=== PATIENT | female | born 1990 | race Caucasian/White ===

== ENCOUNTER 2016-11-13 13:02 | Emergency (ER) | payer OTHER ==
[~2016-11-13] VITALS: Ht 167.6 cm; Wt 113.2 kg
[~2016-11-13 13:02] MED LIST: ATIVAN0.5 MG PO; Antivert PO; BACTRIM,SEPT1 TABLET PO; Colace PO; Desyrel PO; Dulcolax PO; ENDOCET 5-3251 EACH PO; Habitrol,Nicoderm CQ TD; IBUPROFEN800 MG PO; NAPROSYN500 MG PO; PRENATAL TABLE1 EACH PO; Remove Nicotine Patc TD; Senokot S,Pericolace PO; Theragran PO; Tylenol Extra Streng PO; VALACYCLOVIR500 MG PO; VICODIN 5-5001 EACH PO; Xanax PO; predniSONE PO
[2016-11-13 14:43] LABS: ADD MIUA? NO; BILIRUBIN NEGATIVE; BLOOD NEGATIVE; COLOR STRAW ((YELLOW)); GLUCOSE (STRIP) NEGATIVE; KETONES 5; LEUKOCYTES NEGATIVE; NITRITE NEGATIVE; PROTEIN (STRIP) NEGATIVE; SPECIFIC GRAVITY 1.008 (1.000-1.030); UROBILINOGEN 0.2 MG/DL (0.2-1.0)
[2016-11-13 16:00] LABS: HEMATOCRIT 38.7 % (36.0-46.0); MCH 30.1 PG (29.0-34.0); MCHC 34.4 G/DL (30.0-36.0); MCV 87.6 FL (83-99); MEAN PLAT.VOLUME 10.4 uM^3 (9.5-12.4); PLATELET COUNT 225 K/uL (156-360); RBC DIS.WIDTH-CV 12.6 % (11.8-14.6); RBC DIS.WIDTH-SD 40.2 % (39-53); RED BLOOD COUNT 4.42 M/uL (3.80-5.20); WHITE BLOOD COUNT 10.5 K/uL (4.1-10.2)
[2016-11-13 16:21] LABS: CHLORIDE 107 mEq/L (99-109); POTASSIUM 4.2 mEq/L (3.7-5.4); SODIUM 138 mEq/L (136-147)
[2016-11-13 16:22] LABS: GLUCOSE 78 mg/dL (70-99)
[2016-11-13 16:24] LABS: ANION GAP 9 MEQ/L (2-14)
[2016-11-13 16:26] LABS: GFR ESTIMATE (CALCULATED) > 59 mL/min/
[2016-11-13 16:27] LABS: UREA NITROGEN (BUN) 8 mg/dL (9-23)
[2016-11-13 17:00] LABS: QUANTITATIVE HCG 25076.2 MIU/ML
[2016-11-13 17:42] VITALS: BP 124/60
== END 2016-11-13 17:45 | disposition home or self-care (01) ==
LOC: EXP 13:02 → EME 13:02 → EXP 17:45
PROVIDERS: Physician Assistant
DX: O26.892 Other specified pregnancy related conditions, second trimester (principal); E86.0 Dehydration; Z3A.17 17 weeks gestation of pregnancy; F17.200 Nicotine dependence, unspecified, uncomplicated
CPT/HCPCS: 80048; 81003; 84702; 85027; 99281; 99284; J7030

== ENCOUNTER 2017-03-11 16:16 | Inpatient (IN) | payer OTHER ==
[~2017-03-11] VITALS: Ht 167.6 cm; Wt 115.0 kg
[2017-03-11 16:47] VITALS: BP 133/76
[2017-03-11] MEDS ORDERED: MAKENA250 MG/1 M IM (16:52)
[2017-03-11 18:11] VITALS: BP 141/71
[2017-03-11 20:48] VITALS: BP 147/68
[2017-03-12] VITALS (9 sets, daily range): BP systolic 106–146; BP diastolic 56–81
[2017-03-12 21:52] LABS: ADD MIUA? YES; BILIRUBIN NEGATIVE; BLOOD LARGE; COLOR YELLOW ((YELLOW)); GLUCOSE (STRIP) NEGATIVE; KETONES NEGATIVE; LEUKOCYTES LARGE; NITRITE NEGATIVE; PROTEIN (STRIP) NEGATIVE; SPECIFIC GRAVITY 1.009 (1.000-1.030); UROBILINOGEN 0.2 MG/DL (0.2-1.0)
[2017-03-12 21:57] LABS: EOSINOPHIL (%) 0.1 % (0-5); HEMATOCRIT 36.1 % (36.0-46.0); IMMATURE GRANULOCYTE (%) 0.8 % (0.0-0.7); IMMATURE GRANULOCYTE COUNT 0.1 K/uL; INSTRUMENT ABS NEUTROPHIL CT 9.9 K/uL; LYMPHOCYTE COUNT 1.2 K/uL (1.0-2.8); MCH 29.6 PG (29.0-34.0); MCHC 33.8 G/DL (30.0-36.0); MCV 87.6 FL (83-99); MEAN PLAT.VOLUME 10.8 uM^3 (9.5-12.4); MONOCYTE (%) 2.3 % (3-12); MONOCYTE COUNT 0.3 K/uL (0-0.8); NEUTROPHIL (%) 86.3 % (45-76); NEUTROPHIL COUNT 9.9 K/uL (1.8-6.4); PLATELET COUNT 236 K/uL (156-360); RBC DIS.WIDTH-CV 12.4 % (11.8-14.6); RBC DIS.WIDTH-SD 39.5 % (39-53); RED BLOOD COUNT 4.12 M/uL (3.80-5.20); WHITE BLOOD COUNT 11.4 K/uL (4.1-10.2)
[2017-03-12 22:19] LABS: EPITHELIAL CELLS 2+ /HPF; WHITE BLOOD CELLS 30-40 /HPF (0-5); WHITE BLOOD CELLS CLUMP FEW /HPF (0-5)
[2017-03-12 22:20] LABS: AMORPHOUS URATES CRYSTALS RARE; BACTERIA 3+ /HPF; MUCUS TRACE /LPF
[2017-03-13] VITALS (10 sets, daily range): BP systolic 122–155; BP diastolic 56–75
[2017-03-13 07:27] LABS: EOSINOPHIL (%) 0.1 % (0-5); HEMATOCRIT 36.6 % (36.0-46.0); IMMATURE GRANULOCYTE (%) 0.6 % (0.0-0.7); IMMATURE GRANULOCYTE COUNT 0.1 K/uL; LYMPHOCYTE COUNT 1.6 K/uL (1.0-2.8); MCH 30.6 PG (29.0-34.0); MCHC 33.9 G/DL (30.0-36.0); MCV 90.4 FL (83-99); MEAN PLAT.VOLUME 11.2 uM^3 (9.5-12.4); MONOCYTE (%) 3.6 % (3-12); MONOCYTE COUNT 0.4 K/uL (0-0.8); NEUTROPHIL (%) 81.2 % (45-76); PLATELET COUNT 212 K/uL (156-360); RBC DIS.WIDTH-CV 12.6 % (11.8-14.6); RBC DIS.WIDTH-SD 41.5 % (39-53); RED BLOOD COUNT 4.05 M/uL (3.80-5.20); WHITE BLOOD COUNT 11.1 K/uL (4.1-10.2)
[2017-03-13] MEDS ORDERED: MOTRIN800 MG PO (09:59)
[2017-03-13] MEDS ORDERED: PERCOCET 5/31 TABLET PO (09:59)
[2017-03-14 00:25] VITALS: BP 114/53
[2017-03-14 03:30] VITALS: BP 121/55
[2017-03-14 07:06] LABS: EOSINOPHIL (%) 0.3 % (0-5); HEMATOCRIT 28.9 % (36.0-46.0); IMMATURE GRANULOCYTE (%) 0.6 % (0.0-0.7); IMMATURE GRANULOCYTE COUNT 0.1 K/uL; INSTRUMENT ABS NEUTROPHIL CT 7.7 K/uL; LYMPHOCYTE COUNT 1.7 K/uL (1.0-2.8); MCH 30.2 PG (29.0-34.0); MCHC 33.6 G/DL (30.0-36.0); MEAN PLAT.VOLUME 11.1 uM^3 (9.5-12.4); MONOCYTE (%) 9.4 % (3-12); NEUTROPHIL (%) 73.1 % (45-76); NEUTROPHIL COUNT 7.7 K/uL (1.8-6.4); PLATELET COUNT 157 K/uL (156-360); RBC DIS.WIDTH-CV 12.7 % (11.8-14.6); RBC DIS.WIDTH-SD 41.2 % (39-53); WHITE BLOOD COUNT 10.5 K/uL (4.1-10.2)
[2017-03-14 07:07] LABS: RED BLOOD COUNT 3.21 M/uL (3.80-5.20)
[2017-03-14 07:40] VITALS: BP 122/59
[2017-03-14 11:36] VITALS: BP 118/59
[2017-03-14 17:11] VITALS: BP 116/70
[2017-03-15 02:35] VITALS: BP 127/63
[2017-03-15 07:33] VITALS: BP 120/57
[2017-03-15 10:45] VITALS: BP 119/73
[2017-03-15 15:59] VITALS: BP 134/81
[2017-03-15 23:23] VITALS: BP 129/59
[2017-03-16 06:39] VITALS: BP 130/71
[2017-03-16 16:44] VITALS: BP 135/79
[2017-03-16 23:04] VITALS: BP 117/57
[2017-03-17 08:20] VITALS: BP 142/88
== END 2017-03-17 10:49 | disposition home or self-care (01) | DRG 765 ==
LOC: LDRP-OP 16:16 → 2WEST 16:17 → LDRP-OP 05-20 10:28
PROVIDERS: Obstetrics & Gynecology
PROC: 10D00Z1 Extraction of Products of Conception, Low, Open Approach (ICD-10-PCS; principal; 2017-03-13)
DX: O34.211 Maternal care for low transverse scar from previous cesarean delivery (principal); O60.14X1 Preterm labor third trimester with preterm delivery third trimester, fetus 1; D62 Acute posthemorrhagic anemia; O99.354 Diseases of the nervous system complicating childbirth; O98.52 Other viral diseases complicating childbirth; Z68.41 Body mass index [BMI] 40.0-44.9, adult; E66.9 Obesity, unspecified; O99.89 Other specified diseases and conditions complicating pregnancy, childbirth and the puerperium; N73.6 Female pelvic peritoneal adhesions (postinfective); O32.1XX1 Maternal care for breech presentation, fetus 1; Z3A.34 34 weeks gestation of pregnancy; O34.03 Maternal care for unspecified congenital malformation of uterus, third trimester; Q51.3 Bicornate uterus; O36.5931 Maternal care for other known or suspected poor fetal growth, third trimester, fetus 1; Z87.891 Personal history of nicotine dependence; O62.2 Other uterine inertia; O12.04 Gestational edema, complicating childbirth; N85.8 Other specified noninflammatory disorders of uterus; G35 Multiple sclerosis; O99.52 Diseases of the respiratory system complicating childbirth; J45.909 Unspecified asthma, uncomplicated; B00.1 Herpesviral vesicular dermatitis; O99.02 Anemia complicating childbirth; O99.214 Obesity complicating childbirth; Z37.0 Single live birth
CPT/HCPCS: 81003; 85025; 86850; 86900; 86901; 87081; 87086; 88307; G0378; J0702; J1580; J1885; J2210; J2274; J2405; J2550; J2765; J7050; J7120

== ENCOUNTER 2017-03-21 13:12 | Emergency (ER) | payer OTHER ==
[~2017-03-21] VITALS: Ht 167.6 cm; Wt 118.1 kg
[~2017-03-21 13:12] MED LIST changes: +MAKENA250 MG/1 M IM; +MOTRIN800 MG PO; +PERCOCET 5/31 TABLET PO
[2017-03-21 16:40] VITALS: BP 135/106
== END 2017-03-21 16:40 | disposition home or self-care (01) ==
LOC: EME 13:12
DX: O9A.23 Injury, poisoning and certain other consequences of external causes complicating the puerperium (principal); T80.1XXA Vascular complications following infusion, transfusion and therapeutic injection, initial encounter; I80.8 Phlebitis and thrombophlebitis of other sites; M25.531 Pain in right wrist
CPT/HCPCS: 93971; 99281; 99283